=== PATIENT | female | born 1960 | race Two or more races ===

== ENCOUNTER 2017-11-11 04:13 | Emergency (ER) | payer OTHER ==
[2017-11-11 05:14] VITALS: BP 150/58; PULSE 80; RESP 16; TEMP 97.8; O2SAT 99
--- NOTE | 2017-11-11 05:41 | ED PDOC ---
Lower Extremity Pain/Injury Time Seen by Provider: 11/11/17 05:03 Chief Complaint (Nursing): Lower Extremity Problem/Injury Chief Complaint (Provider): Lower Extremity swelling/edema Additional History Per: Patient Additional Complaint(s): This is 56 year old female with PMH of HTN presents to the ER c/o of chronic bilateral leg swelling, edema, itching, pressure and pain to the bilateral feet. Pain is 7/10, elevation of feet help with pain and walking makes it worse. Denies calf pain, recent trauma, weakness, numbness, chest pain or SOB. Past Medical History Reviewed: Vital Signs Vital Signs: Last Vital Signs Temp 97.8 F 11/11/17 04:59 Pulse 80 11/11/17 04:59 Resp 16 11/11/17 04:59 BP 150/58 L 11/11/17 04:59 Pulse Ox 99 11/11/17 04:59 - Medical History PMH: HTN - Surgical History Surgical History: No Surg Hx - Family History Family History: States: Unknown Family Hx - Social History Current smoker - smoking cessation education provided: Yes Alcohol: None Drugs: Denies - Immunization History Hx Tetanus Toxoid Vaccination: No Hx Influenza Vaccination: Yes Hx Pneumococcal Vaccination: No - Home Medications Home Medications: Ambulatory Orders Medication Instructions Recorded Folic Acid 1 mg PO DAILY 11/08/17 Multivitamin [Multivitamins] 1 each PO DAILY 11/08/17 Pantoprazole [Protonix] 40 mg PO DAILY 11/08/17 - Allergies Allergies/Adverse Reactions: Allergies Allergy/AdvReac Type Severity Reaction Status Date / Time No Known Allergies Allergy Unverified 10/14/17 22:25 Wells Criteria for PE - Wells Criteria for Pulmonary Embolism Clinical Signs and Symptoms of DVT: No P.E is #1 Diagnosis, or Equally Likely: No Heart Rate >100: No Immobilization at least 3 days;Surgery previous 4 weeks: No Previous, objectively diagnosed PE or DVT: No Hemoptysis: No Malignancy w/treatment within 6 months, or palliative: No Total Score: 0 Review of Systems Constitutional: Negative for: Fever Eyes: Negative for: Pain, Conjunctivae Inflammation ENT: Negative for: Ear Pain, Nose Pain Cardiovascular: Negative for: Chest Pain, Palpitations Respiratory: Negative for: Cough, Shortness of Breath Gastrointestinal: Negative for: Nausea, Vomiting Genitourinary Female: Negative for: Dysuria Musculoskeletal: Negative for: Neck Pain Skin: Negative for: Rash Neurological: Negative for: Weakness Physical Exam - Physical Exam Appears: Positive for: No Acute Distress Head Exam: Positive for: ATRAUMATIC Skin: Positive for: Normal Color Eye Exam: Positive for: Normal appearance ENT: Positive for: Normal ENT Inspection Neck: Positive for: Normal Cardiovascular/Chest: Positive for: Regular Rate, Rhythm, Chest Non Tender Respiratory: Positive for: Normal Breath Sounds Gastrointestinal/Abdominal: Positive for: Normal Exam, Bowel Sounds, Soft. Negative for: Tenderness Extremity: Positive for: Tenderness (right leg), Pedal Edema, Swelling (warm to tough from knee to toes ). Negative for: Calf Tenderness - ECG O2 Sat by Pulse Oximetry: 99 - Progress ED Course And Treament: 56 y/o female with right leg chronic venous stasis/edema - Encouraged to use pressure bands - Elevation - Follow up with PMD - Discharge Case discussed with Dr. Sanford Medical Decision Making Medical Decision Making: Chronic venous stasis/edema Disposition - Clinical Impression Clinical Impression: Dependent edema, Venous stasis - Disposition Referrals: [facility] [Outside] Disposition: Routine/Home Disposition Time: 05:45 Condition: FAIR Instructions: Stasis Dermatitis (ED), Leg Edema (ED) Forms: [facility] (Bel[place]ian)
== END 2017-11-11 05:59 | disposition home or self-care (01) ==
LOC: H.ER 04:13
DX: I87.8 Other specified disorders of veins (principal); R60.0 Localized edema; I10 Essential (primary) hypertension